=== PATIENT | female | born 1990 | race Caucasian/White ===

== ENCOUNTER 2020-09-13 08:00 | Outpatient (CLI) | payer OTHER ==
[2020-09-13] MEDS ORDERED: CEPHALEXIN500 M1 PO (11:45)
[2020-09-17 18:11] LABS: AMPHETAMINE Positive (.); AMPHETAMINE GC/MS CONF 812 ng/mL (Cutoff=500); AMPHETAMINES Positive (Cutoff=1000); AMPHETAMINES, URINE See Final Results ng/mL (Cutoff=1000); BARBITURATE Negative ng/mL (Cutoff=200); BENZODIAZEPINES Negative ng/mL (Cutoff=200); CANNABINOID Negative (Cutoff=20); CANNABINOIDS See Final Results ng/mL (Cutoff=20); COCAINE (METABOLITE) Negative ng/mL (Cutoff=300); CREATININE 46.3 mg/dL (20.0-300.0); MEPERIDINE Negative ng/mL (Cutoff=200); METHADONE Negative ng/mL (Cutoff=300); METHAMPHETAMINE Positive (.); METHAMPHETAMINE GC/MS CONF 3160 ng/mL (Cutoff=500); OPIATES Negative ng/mL (Cutoff=300); PHENCYCLIDINE Negative ng/mL (Cutoff=25); PROPOXYPHENE Negative ng/mL (Cutoff=300)
== END 2020-09-13 12:12 | disposition home or self-care (01) ==
LOC: GENOP 08:00
PROVIDERS: Obstetrics & Gynecology
DX: O23.40 Unspecified infection of urinary tract in pregnancy, unspecified trimester (principal); Z3A.00 Weeks of gestation of pregnancy not specified
CPT/HCPCS: 80307; 81001; G0463; J0696

== ENCOUNTER → 2020-10-01 | Outpatient (CLI) | payer OTHER ==
[~2020-10-01] MED LIST: CEPHALEXIN500 M1 PO
[2020-10-01 16:43] LABS: HEMOGLOBIN 8.7 gm/dl (12.3-15.3); RED BLOOD COUNT 3.49 M/UL (4.00-5.10); WHITE BLOOD COUNT 6.9 K/UL (4.5-11.0)
[2020-10-03 07:12] LABS: HBSAG SCREEN Negative (Negative); HEP A AB, IGM Negative (Negative); HEP B CORE AB, IGM Negative (Negative); HEP C VIRUS AB <0.1 (0.0-0.9); RUBELLA ANTIBODIES, IGG 2.83 index (Immune >0.99)
[2020-10-03 16:09] LABS: TREPONEMA PALLIDUM ANTIBODIES Non Reactive (Non Reactive)
[2020-10-05 08:11] LABS: CHLAMYDIA BY NAA Negative (Negative); GONOCOCCUS BY NAA Negative (Negative); TRICH VAG BY NAA Negative (Negative)
== END ==
LOC: GENOP 14:34
PROVIDERS: Obstetrics & Gynecology
DX: O99.891 Other specified diseases and conditions complicating pregnancy (principal); M54.5 Low back pain; O12.02 Gestational edema, second trimester; O36.8120 Decreased fetal movements, second trimester, not applicable or unspecified; O99.322 Drug use complicating pregnancy, second trimester; F11.10 Opioid abuse, uncomplicated; O99.012 Anemia complicating pregnancy, second trimester; D64.9 Anemia, unspecified; O99.332 Smoking (tobacco) complicating pregnancy, second trimester; F17.210 Nicotine dependence, cigarettes, uncomplicated; Z3A.22 22 weeks gestation of pregnancy
CPT/HCPCS: 59025; 76815; 80074; 80307; 81001; 82731; 83880; 85025; 86762; 86780; 86900; 86901; 87210; 87661

== ENCOUNTER 2020-10-10 02:35 | Outpatient (CLI) | payer OTHER ==
[2020-10-10 05:10] LABS: BUN/CREATININE RATIO 20 (0-10)
[2020-10-10 05:31] LABS: HEMOGLOBIN 8.9 gm/dl (12.3-15.3); RED BLOOD COUNT 3.76 M/UL (4.00-5.10); WHITE BLOOD COUNT 11.2 K/UL (4.5-11.0)
== END 2020-10-13 11:34 | disposition home or self-care (01) ==
LOC: GENOP 02:35
PROVIDERS: Obstetrics & Gynecology
DX: O44.52 Low lying placenta with hemorrhage, second trimester (principal); O09.32 Supervision of pregnancy with insufficient antenatal care, second trimester; O99.322 Drug use complicating pregnancy, second trimester; F15.10 Other stimulant abuse, uncomplicated; O99.332 Smoking (tobacco) complicating pregnancy, second trimester; F17.210 Nicotine dependence, cigarettes, uncomplicated; O99.012 Anemia complicating pregnancy, second trimester; D64.9 Anemia, unspecified; Z3A.23 23 weeks gestation of pregnancy
CPT/HCPCS: 80053; 80307; 81001; 85025; 85384